=== PATIENT | male | born 1990 | race Caucasian/White ===

== ENCOUNTER 2019-02-01 02:34 | Emergency (ER) | payer BC ==
[~2019-02-01] VITALS: Ht 172.7 cm; Wt 75.0 kg
[2019-02-01] MEDS ORDERED: KETOROLAC 60MG/2ML VIAL IM STA (04:06)
[2019-02-01] MEDS ORDERED: HYDROCODONE/ACETAMINOPHEN 5/325MG TABLET PO STA (06:48)
[2019-02-01 07:11] VITALS: BP 118/74
== END 2019-02-01 07:19 | disposition home or self-care (01) ==
LOC: ER 02:34
DX: M79.644 Pain in right finger(s) (principal); Z89.021 Acquired absence of right finger(s)
CPT/HCPCS: 96372; 99283; J1885; Z7610